=== PATIENT | female | born 1985 | race Caucasian/White ===

== ENCOUNTER 2020-06-10 12:55 | Outpatient (RCR) | payer OTHER | END 2020-06-19 10:02 | disposition home or self-care (01) | LOC: WSOH 12:55 | DX: S91.331A Puncture wound without foreign body, right foot, initial encounter (principal); W45.0XXA Nail entering through skin, initial encounter; Y99.0 Civilian activity done for income or pay; Z90.79 Acquired absence of other genital organ(s) ==